=== PATIENT | female | born 2000 | race Caucasian/White ===

== ENCOUNTER 2021-10-16 20:28 | Inpatient (IN) ==
[2021-10-16] MEDS ORDERED: Buffered Lidocaine 1% SYRIN 1 ml INTRADERM ONE (21:05)
[2021-10-16] MEDS ORDERED: Lactated Ringers 1000 ml BAG 1,000 ML IV ONE (21:05)
[2021-10-16 21:28] LABS: Hematocrit 32 % (35-47); Hemoglobin 10.4 g/dL (12.0-16.0); Mean Corpuscular HGB Conc 33 g/dL (31-36); Mean Corpuscular Hemoglobin 27 pg (27-31); Mean Corpuscular Volume 82 fL (80-97); Mean Platelet Volume 9.8 fL (7.4-10.4); Platelet Count 242 10^3/uL (150-450); Red Blood Count 3.87 10^6 /uL (3.70-4.87); Red Cell Distribution Width 17 % (10-15); White Blood Count 15.5 10^3/uL (3.5-10.8)
[2021-10-16 21:39] LABS: Urine Benzodiazepine Screen None Detected (None Detect); Urine Cannabinoids Screen Presumptive Positive (None Detect); Urine Opiates Screen None Detected (None Detect)
[2021-10-16] MEDS ORDERED: Lactated Ringers 1000 ml BAG 1,000 ML IV SCH (22:00)
[2021-10-16 22:03] LABS: ABS Basophils 0.1 10^3/ul (0-0.2); ABS Eosinophils 0.1 10^3/ul (0-0.6); ABS Lymphocytes 2.3 10^3/ul (1.0-4.8); ABS Monocytes 0.7 10^3/ul (0-0.8); ABS Neutrophils 12.4 10^3/ul (1.5-7.7); Anisocytosis 1+; Eosinophil % 0.5 %
[2021-10-16 22:16] LABS: Rapid COVID-19 Molecular Undetected (Undetected)
[2021-10-16] MEDS ORDERED: OBEPIDURAL 250 ML EPIDURAL ONE (23:03)
[2021-10-17] MEDS ORDERED: Phenylephrine 40 mcg/mL 10mL (400mcg) SYRINGE IV PUSH PRN (00:23)
[2021-10-17] MEDS ORDERED: Sodium Citrate/Citric Acid LIQ 15 ML UDC PO PRN (00:23)
[2021-10-17 00:53] LABS: Urine Appearance Cloudy; Urine Bilirubin Negative (Negative); Urine Blood Negative (Negative); Urine Color Yellow; Urine Glucose Negative (Negative); Urine Ketones Negative (Negative); Urine Nitrite Negative (Negative); Urine Protein 1+(30 mg/dL) (Negative); Urine Specific Gravity 1.025 (1.002-1.030); Urine Urobilinogen Negative (Negative)
[2021-10-17 00:55] LABS: Urine Bacteria Absent (Absent); Urine Red Blood Cell 1+(3-5/hpf) (Absent); Urine Squamous Epithelial Cell Present (Absent); Urine White Blood Cell 1+(6-10/hpf) (Absent)
[2021-10-17] MEDS: OBEPIDURAL 250 ML EPIDURAL SCH ×2 (07:31→14:36)
[2021-10-17] MEDS ORDERED: Oxytocin in LR 20 UNITS/1,000 ML BAG IVPB SCH ×2 (09:00→17:00)
[2021-10-17] MEDS ORDERED: Dibucaine 1% OINT 28.35 GM TUBE PR PRN (16:45)
[2021-10-17] MEDS ORDERED: Glycerin ADULT 2.4 gm SUPP PR PRN (16:45)
[2021-10-17] MEDS ORDERED: Lactated Ringers 1000 ml BAG 1,000 ML IV SCH (17:00)
[2021-10-17] MEDS ORDERED: Lidocaine 1% VIAL 10 MG/ML VIAL ONE (19:35)
[2021-10-17] MEDS: Witch Hazel PAD JAR TOPICAL PRN (21:41)
[2021-10-18 05:45] LABS: Hematocrit 29 % (35-47); Hemoglobin 9.5 g/dL (12.0-16.0); Mean Corpuscular HGB Conc 33 g/dL (31-36); Mean Corpuscular Hemoglobin 26 pg (27-31); Mean Corpuscular Volume 80 fL (80-97); Mean Platelet Volume 9.2 fL (7.4-10.4); Platelet Count 196 10^3/uL (150-450); Red Blood Count 3.64 10^6 /uL (3.70-4.87); Red Cell Distribution Width 16 % (10-15); White Blood Count 16.2 10^3/uL (3.5-10.8)
[2021-10-18 06:04] LABS: ABS Basophils 0.1 10^3/ul (0-0.2); ABS Eosinophils 0.1 10^3/ul (0-0.6); ABS Lymphocytes 2.3 10^3/ul (1.0-4.8); ABS Monocytes 0.7 10^3/ul (0-0.8); ABS Neutrophils 13.1 10^3/ul (1.5-7.7); Eosinophil % 0.5 %; Lymphocyte % 13.9 %
[2021-10-18] MEDS: OBEPIDURAL 250 ML EPIDURAL SCH (07:52)
[2021-10-18] MEDS ORDERED: Varicella Virus Vaccine Live 0.5 ML VIAL SUBCUT ONE (09:00)
[2021-10-19 08:35] VITALS: BP 118/61
[2021-10-19] MEDS: Witch Hazel PAD JAR TOPICAL PRN (08:52)
== END 2021-10-19 17:19 | disposition home or self-care (01) | DRG 560 ==
LOC: MCHOBOUT 20:28 → MCHOB 21:02
PROVIDERS: ADMIT Midwife; ATTEND Midwife